=== PATIENT | female | born 1935 | race Caucasian/White ===

== ENCOUNTER 2020-02-16 06:15 | Inpatient (IN) ==
[2020-02-16] MEDS ORDERED: CeFAZolin Syr 2,000MG/20 ML 2,000 MG/20 ML SYRINGE IVPB ONE (06:29)
[2020-02-16] MEDS ORDERED: Ringers Solution, Lactated 1,000 ML IVC SCH ×2 (06:30→09:34)
[2020-02-16 07:00] LABS: Basophils # 0.1 K/mcL (0.0-0.2); Basophils % 0.7 %; Eosinophils # 0.1 K/mcL (0.0-0.6); Hematocrit 41.1 % (35.3-44.9); Hemoglobin 13.3 g/dL (11.5-15.4); Immature Granulocytes % 0.1 % (0-4); Lymphocytes # 2.8 K/mcL (0.6-4.6); Mean Corpuscular HGB Conc 32.4 g/dL (31.6-35.5); Mean Corpuscular Hemoglobin 32.4 pg (28.0-33.3); Mean Platelet Volume 8.9 fL (9.4-12.4); Monocytes # 0.6 K/mcL (0.0-1.3); Monocytes % 6.5 %; Neutrophils # 5.5 K/mcL (1.6-8.9); Platelet Count 231 K/mcL (140-400); Red Blood Count 4.11 M/mcL (3.82-4.97); Red Cell Distribution Width 12.5 % (11.5-14.5); Segmented Neutrophils % 60.7 %; White Blood Count 9.1 K/mcL (4.3-11.1)
[2020-02-16] MEDS ORDERED: *HR* Succinylcholine 200 MG/10 ML VIAL IVP ONE (07:11)
[2020-02-16] MEDS ORDERED: Lidocaine HCL 4 ML Topical Solution (Laryng-O-Jet Kit Sterile Pak) TP ONE (07:11)
[2020-02-16] MEDS ORDERED: Lidocaine -MPF 2% 2 ML VIAL ONE (07:11)
[2020-02-16] MEDS ORDERED: Ondansetron 4 MG/2 ML VIAL ONE (07:11)
[2020-02-16] MEDS ORDERED: Dexamethasone 4 MG/ML VIAL ONE (07:11)
[2020-02-16] MEDS ORDERED: *HR* FentaNYL (PF) 100 MCG/2 ML VIAL ONE (07:13)
[2020-02-16] MEDS ORDERED: *HR* Propofol 200 MG/20 ML VIAL IVP ONE (07:14)
[2020-02-16] MEDS ORDERED: Ondansetron 4 MG/2 ML VIAL IVP ONE (07:15)
[2020-02-16] MEDS ORDERED: *HR* OxyCODONE Immed Rel 5 MG TABLET PO PRN ×2 (07:15→09:34)
[2020-02-16 07:22] LABS: Calcium 9.4 mg/dL (8.6-10.3); Potassium 3.8 mEq/L (3.5-5.1)
[2020-02-16] MEDS ORDERED: Ethanol\\Acetic Acid\\Na Ace\\Ben 1,000 ML IRRIG.SOLN IR ONE (07:24)
[2020-02-16] MEDS ORDERED: Vancomycin 1,000 MG VIAL ONE (07:25)
[2020-02-16] MEDS ORDERED: Ropivacaine/PF 0.5% 30 ML VIAL ONE (07:36)
[2020-02-16] MEDS ORDERED: ROPIVACAINE/PF/NS 0.25% 1 EACH SYRINGE INTRAART ONE (07:37)
[2020-02-16] MEDS ORDERED: *HR* PHENYLEPHRINE 1,000 MCG/10 ML SYRINGE IVP ONE (08:00)
[2020-02-16] MEDS: *HR* HYDROmorphone PF 0.5 MG/0.5 ML SYRINGE IVP PRN ×4 (08:50→09:10)
[2020-02-16] MEDS ORDERED: MOM Conc 10 ML UD.LIQ PO PRN (09:34)
[2020-02-16] MEDS ORDERED: *HR* Dextrose 50 % in Water (Syg) 50 ML SYRINGE IVP PRN (09:34)
[2020-02-16] MEDS ORDERED: D5% in Water 1,000 ML IVC PRN (09:34)
[2020-02-16] MEDS ORDERED: *HR* OxyCODONE/APAP 5/325 TABLET PO PRN (09:34)
[2020-02-16] MEDS ORDERED: Ipratropium 1 PUFF INHALER IH SCH (09:34)
[2020-02-16] MEDS ORDERED: Ondansetron 4 MG/2 ML VIAL IVP PRN (09:34)
[2020-02-16] MEDS ORDERED: Naloxone 0.4 MG/ML INJ IVP PRN (09:34)
[2020-02-16] MEDS ORDERED: Sennosides 8.6 MG TABLET PO PRN (09:34)
[2020-02-16] MEDS ORDERED: Dextrose Gel 15 GM/37.5 ML TUBE PO PRN ×2 (09:34)
[2020-02-16 09:42] LABS: Hematocrit 38.5 % (35.3-44.9); Hemoglobin 12.5 g/dL (11.5-15.4)
[2020-02-16] MEDS: Budesonide/Formoterol 80/4.5 1 PUFF INH IH SCH ×2 (10:57→20:11)
[2020-02-16] MEDS: Ipratropium 1 PUFF INHALER IH SCH ×2 (10:58→20:12)
[2020-02-16] MEDS: Multivit/Ca/Min/Fe/FA 1 TAB TABLET PO SCH (11:16)
[2020-02-16] MEDS: Diphenoxylate/Atropine 1 TAB TABLET PO SCH ×2 (11:16→21:02)
[2020-02-16] MEDS: Insulin LISPRO 300 UNITS/3 ML VIAL SQ SCH ×2 (12:57→17:41)
[2020-02-16] MEDS: CeFAZolin 2 GM/120 ML BAG IVPB SCH ×2 (16:06→23:43)
[2020-02-16] MEDS ORDERED: *HR* Enoxaparin 30 MG/0.3 ML SYRINGE SQ SCH (18:00)
[2020-02-16] MEDS ORDERED: Insulin LISPRO 300 UNITS/3 ML VIAL SQ SCH (21:00)
[2020-02-17] MEDS ORDERED: *HR* Enoxaparin 30 MG/0.3 ML SYRINGE SQ SCH (06:00)
[2020-02-17 06:51] LABS: Hematocrit 35.7 % (35.3-44.9); Hemoglobin 11.7 g/dL (11.5-15.4)
[2020-02-17] MEDS: Multivit/Ca/Min/Fe/FA 1 TAB TABLET PO SCH (07:29)
[2020-02-17 07:33] VITALS: BP 118/72
[2020-02-17] MEDS: Diphenoxylate/Atropine 1 TAB TABLET PO SCH (07:33)
[2020-02-17] MEDS: Insulin LISPRO 300 UNITS/3 ML VIAL SQ SCH (07:39)
[2020-02-17] MEDS: Ipratropium 1 PUFF INHALER IH SCH (08:47)
[2020-02-17] MEDS: Budesonide/Formoterol 80/4.5 1 PUFF INH IH SCH (08:50)
[2020-02-17] MEDS ORDERED: hydroCHLOROthiazide 25 MG TABLET PO SCH (09:00)
[2020-02-17 10:42] LABS: Calcium 9.1 mg/dL (8.6-10.3); Potassium 4.4 mEq/L (3.5-5.1)
== END 2020-02-17 11:45 | disposition home health service (06) | DRG 483 ==
LOC: SAMDAY 06:15 → 3NENU 09:33
PROVIDERS: ADMIT Orthopaedic Surgery; ATTEND Orthopaedic Surgery